=== PATIENT | female | born 1975 | race Caucasian/White ===

== ENCOUNTER 2017-08-14 20:07 | Emergency (ER) | payer BC ==
[~2017-08-14] VITALS: Ht 167.6 cm; Wt 121.6 kg
[~2017-08-14 20:07] MED LIST: AUGMENTIN875 MG PO; CLONIDINE HCL0.3 MG PO; DESYREL100 MG PO; KLONOPIN0.5 M1 PO; NOHOMEMEDS; PERCOCET 5/31 TABLET PO; PROZAC20 MG PO; PROZAC40 MG PO; TOBRAMYCIN SULFA5 ML; TRAZODONE HCL100 MG PO; TRAZODONE HCL50 MG PO; VIGAMOX 0.60 DROP/3 LEFT EYE; WYGESIC,DARV1 TABLET PO; [UNRECOGNIZED DRUG - REMARK]
[2017-08-14] MEDS ORDERED: VALIUM5 MG PO (22:04)
[2017-08-14] MEDS ORDERED: NORCO 10/3251 TABLET PO (22:04)
[2017-08-14] MEDS ORDERED: INDOCIN50 MG PO (22:04)
[2017-08-14 22:33] VITALS: BP 138/102
== END 2017-08-14 22:37 | disposition home or self-care (01) ==
LOC: EME 20:07
DX: M75.22 Bicipital tendinitis, left shoulder (principal); S46.002A Unspecified injury of muscle(s) and tendon(s) of the rotator cuff of left shoulder, initial encounter; S46.312A Strain of muscle, fascia and tendon of triceps, left arm, initial encounter; W18.30XA Fall on same level, unspecified, initial encounter; K21.9 Gastro-esophageal reflux disease without esophagitis; I10 Essential (primary) hypertension; F41.9 Anxiety disorder, unspecified; F32.9 Major depressive disorder, single episode, unspecified; Z87.891 Personal history of nicotine dependence; Z87.442 Personal history of urinary calculi; Z90.49 Acquired absence of other specified parts of digestive tract
CPT/HCPCS: 73030; 99281; 99284